=== PATIENT | female | born 1980 | race Caucasian/White ===

== ENCOUNTER → 2016-09-11 | Outpatient (CLI) | payer BC ==
[~2016-09-11] MED LIST: ACHYD1T PO; BPR150TCR PO; FRS325T PO; IBP600T1 PO; OXYC-12 PO; PREN1TAB39 PO
--- NOTE | 2016-09-11 15:35 | Diagnostic Imaging Report ---
INDICATION: survey. TECHNIQUE: Multiple real-time grayscale images were obtained over the gravid uterus. COMPARISON: None FINDINGS: There is a single intrauterine . The heart rate is 132 beats per minute. The placenta is posterior. No placenta previa. The cervix appears long and closed. It is estimated to be around 5.8 cm in length. The internal os is not well delineated, however, on this exam. Adequate amniotic fluid is seen. anatomy evaluation demonstrates no ventriculomegaly and unremarkable appearance of the posterior fossa. The spine, the kidneys, the stomach, the bladder, 2 umbilical arteries and the cord insertion appear unremarkable. The four-chamber view is not well seen due to position. Biometrical measurements are as follows: Biparietal 5.41 cm, age 22 weeks 4 days. Head circumference 20.96 cm, age 23 weeks 1 days. Abdominal circumference 18.08 cm, age 23 weeks 0 days. Femur length 3.91 cm, age 22 weeks 4 days. Sonographic estimate age: 22 weeks 6 days. This compares to gestational age of 22 weeks and 3 days based on provided NICK of 01/12/17. Sonographic estimated date of delivery: 01/09/2017. Estimated Weight: 534 gm (+/- 78 gm). LMP percentile: 62%. heart rate: 132 beats per minute. number: 1 of 1. IMPRESSION: The four-chamber view is not well seen due to position. Followup study within 2 weeks is recommended to reevaluate. Dictated by: Dictated on workstation # [id number]
== END ==
LOC: RAD 10:22
PROVIDERS: ATTEND Obstetrics & Gynecology
DX: Z36 Encounter for antenatal screening of mother (principal); Z3A.22 22 weeks gestation of pregnancy
CPT/HCPCS: 76805

== ENCOUNTER → 2016-11-28 | Outpatient (CLI) | payer BC ==
[~2016-11-28] MED LIST changes: +BUPR300T43 PO; +CITA10TA7 PO; +HYDR-3812 PO; +IBUP-1773 PO; +LORA10TA7 PO; +PREN-8 PO
--- NOTE | 2016-11-28 13:45 | Diagnostic Imaging Report ---
INDICATION: Check growth and amniotic fluid index. TECHNIQUE: Multiple real-time grayscale images were obtained over the gravid uterus. COMPARISON: 09/11/2016. FINDINGS: The previous OB ultrasound exam of 09/11/2016 noted a single live fetus at approximately 22 weeks 6 days gestation +/-2 weeks. The fetus is again identified on this study. The fetus is cephalic in presentation and heart motion was noted with a rate of 135 BPM recorded. On the prior exam, the four-chamber heart view was less than optimal. On this study however, the four-chamber heart view appears to be within normal limits. There are no other abnormalities identified. The placenta is posterior and there is no previa. The amniotic fluid index is 14.5 cm (normal 8 to 22 cm). The growth parameters average 35 weeks 2 days gestation +/-3 weeks. By the first exam, the estimated gestational age should be 33 weeks 4 days. The femur length does fall behind the other measurements by approximately 2 weeks. The weight is in the 80th percentile. Biometrical measurements are as follows: Biparietal 8.77 cm, age 35 weeks 3 days. Head circumference 32.73 cm, age 37 weeks 2 days. Abdominal circumference 31.45 cm, age 35 weeks 3 days. Femur length 6.3 cm, age 32 weeks 5 days. Sonographic estimate age: 35 weeks 2 days. Sonographic estimated date of delivery: 12/31/2016. Estimated Weight: 2525 gm (+/- 369 gm). LMP percentile: 80%. heart rate: 135 beats per minute. number: 1 of 1. IMPRESSION: 1. There is a single live fetus at approximately 33 weeks 4 days gestation +/-1 week. The EDC remains January 12, 2017. 2. There were no abnormalities identified. In particular, the four-chamber heart view is within normal limits. 3. The growth parameters have progressed as expected since the prior exam tending towards the high side of normal. Dictated by: Dictated on workstation # [id number]
== END ==
LOC: RAD 10:35
PROVIDERS: ATTEND Obstetrics & Gynecology
DX: O24.410 Gestational diabetes mellitus in pregnancy, diet controlled (principal); Z3A.33 33 weeks gestation of pregnancy
CPT/HCPCS: 76816

== ENCOUNTER → 2016-12-20 | Outpatient (CLI) | payer BC ==
--- NOTE | 2016-12-20 11:47 | Diagnostic Imaging Report ---
INDICATION: Gestational diabetes. TECHNIQUE: Multiple real-time grayscale images were obtained over the gravid uterus. COMPARISON: 11/28/2016 FINDINGS: heart rate is 153 beats per minute. The presentation is cephalic. The placenta is posterior. No placenta previa. Total biophysical profile score is 8 out of 8. The amniotic fluid index is 12.8 cm. Biometrical measurements are as follows: Biparietal 9.36 cm, age 38 weeks 1 days. Head circumference 33.56 cm, age 38 weeks 3 days. Abdominal circumference 34.80 cm, age 38 weeks 5 days. Femur length 7.12 cm, age 36 weeks 4 days. Sonographic estimate age: 38 weeks 0 days. Sonographic estimated date of delivery: 01-03-2017. Estimated Weight: 3397 gm (+/- 496 gm). LMP percentile: 87%. heart rate: 153 beats per minute. number: 1 of 1. IMPRESSION: Total biophysical profile score is 8 out of 8. Dictated by: Dictated on workstation # [id number]
== END ==
LOC: RAD 10:03
PROVIDERS: ATTEND Obstetrics & Gynecology
DX: O09.523 Supervision of elderly multigravida, third trimester (principal); O24.410 Gestational diabetes mellitus in pregnancy, diet controlled; Z3A.00 Weeks of gestation of pregnancy not specified
CPT/HCPCS: 76805; 76819

== ENCOUNTER 2016-12-26 12:28 | Outpatient (CLI) | payer BC ==
[~2016-12-26] VITALS: Ht 157.5 cm; Wt 82.1 kg
[~2016-12-26 12:28] MED LIST changes: -BUPR300T43 PO; -CITA10TA7 PO; -HYDR-3812 PO; -IBUP-1773 PO; -LORA10TA7 PO; -PREN-8 PO
[2016-12-26] MEDS ORDERED: LORA10TA7 PO (12:36)
[2016-12-26] MEDS ORDERED: CITA10TA7 PO (12:36)
[2016-12-26] MEDS ORDERED: BUPR300T43 PO (12:36)
[2016-12-26] MEDS ORDERED: PREN-8 PO (12:36)
[2016-12-26 12:51] VITALS: BP 113/68
== END 2016-12-26 12:56 | disposition home or self-care (01) ==
LOC: PREOP 12:28
PROVIDERS: ATTEND Obstetrics & Gynecology
DX: Z3A.00 Weeks of gestation of pregnancy not specified; O34.219 Maternal care for unspecified type scar from previous cesarean delivery; Z01.818 Encounter for other preprocedural examination
CPT/HCPCS: 87081

== ENCOUNTER 2017-01-01 03:06 | Inpatient (IN) | payer BC ==
[~2017-01-01] VITALS: Ht 160 cm; Wt 80.9 kg
[~2017-01-01 03:06] MED LIST changes: +BUPR300T43 PO; +CITA10TA7 PO; +CITRIC ACID/SOB CIT (BICITRA) 30 ML UDC ONE; +FAMOTIDINE 20MG/2ML IV (PEPCID) ONE; +LACTATED RINGERS 2,000 ML IV ONE; +LORA10TA7 PO; +METOCLOPRAMIDE INJ 10 MG/2 ML (REGLAN) ONE; +NS (IVPB) 50 ML ONE; +PREN-8 PO; +ceFAZolin 1,000 MG (ANCEF) VIAL ONE; +metroNIDAZOLE 500MG/100ML IVPB 100 ML ONE
[2017-01-01] MEDS ORDERED: CITRIC ACID/SOB CIT (BICITRA) 30 ML UDC PO ONE (06:00)
[2017-01-01] MEDS ORDERED: METOCLOPRAMIDE INJ 10 MG/2 ML (REGLAN) IV ONE (06:00)
[2017-01-01] MEDS ORDERED: FAMOTIDINE 20MG/2ML IV (PEPCID) IV ONE (06:00)
[2017-01-01 06:02] VITALS: BP 108/72
[2017-01-01] MEDS: LACTATED RINGERS 1,000 ML IV PRN ×2 (06:05→07:25)
[2017-01-01 06:23] LABS: BASOPHILS % (AUTO) 0 % (0-10); EOSINOPHILS # (AUTO) 0.1 10^3/uL (0.0-0.3); EOSINOPHILS % (AUTO) 1 % (0-10); LYMPHOCYTES # (AUTO) 2.2 X 10^3 (1.0-4.0); LYMPHOCYTES % (AUTO) 28 % (12-44); MEAN CORPUSCULAR HEMOGLOBIN 31 PG (25-34); MEAN CORPUSCULAR HGB CONC 33 G/DL (32-36); MEAN CORPUSCULAR VOLUME 94 FL (80-99); MONOCYTES # (AUTO) 0.7 X 10^3 (0.0-1.0); MONOCYTES % (AUTO) 9 % (0-12); NEUTROPHILS % (AUTO) 62 % (42-75); PLATELET COUNT 215 10^3/uL (130-400); RED BLOOD COUNT 4.18 10^6/uL (4.35-5.85); RED CELL DISTRIBUTION WIDTH 14.8 % (10.0-14.5)
[2017-01-01 06:53] LABS: BILIRUBIN,URINE NEGATIVE (NEGATIVE); KETONES,URINE NEGATIVE (NEGATIVE); LEUKOCYTE ESTERASE ,URINE NEGATIVE (NEGATIVE); NITRITE,URINE NEGATIVE (NEGATIVE); PH,URINE 7 (5-9); PROTEIN,URINE NEGATIVE (NEGATIVE); UROBILINOGEN,URINE NORMAL (NORMAL)
[2017-01-01] MEDS ORDERED: fentaNYL INJECTION 100 MCG/2 ML AMP ONE (07:06)
[2017-01-01] MEDS ORDERED: morphine PF (DURAMORPH) 10 MG/10 ML AMP ONE (07:06)
[2017-01-01 07:18] LABS: SQUAMOUS EPITHELIAL CELL,UR 0-2 /HPF
[2017-01-01] MEDS ORDERED: LACTATED RINGERS 1,000 ML IV ONE (07:23)
[2017-01-01] MEDS ORDERED: NALOXONE 0.4 MG/ML 1 ML (NARCAN) VIAL IV PRN (07:30)
[2017-01-01] MEDS ORDERED: ONDANSETRON 4 MG/2 ML (SDV) Z0FRAN IV PRN (07:30)
[2017-01-01] MEDS ORDERED: fentaNYL INJECTION 100 MCG/2 ML AMP INJ ONE (07:30)
[2017-01-01] MEDS ORDERED: morphine PF (DURAMORPH) 10 MG/10 ML AMP INJ ONE (07:30)
--- NOTE | 2017-01-01 07:48 | Progress Note-Pre Operative ---
Pre-Operative Progress Note H&P Reviewed The H&P was reviewed, patient examined and no changes noted. Date Seen by Provider: Jan 01, 2017 Time Seen by Provider: 07:35 Date H&P Reviewed: Jan 01, 2017 Time H&P Reviewed: 07:30 Pre-Operative Diagnosis: previous section, gest diabetes, A1, risk reducing salpingectomy SUNNY MEEHAN DO Jan 01, 2017 07:48
[2017-01-01] MEDS ORDERED: ceFAZolin INJECTION 1,000 MG in NS (IVPB) 50 ML IV NR (08:00)
[2017-01-01] MEDS ORDERED: metroNIDAZOLE 500MG/100ML IVPB 100 ML IV NR (08:00)
[2017-01-01] MEDS ORDERED: CATHETER FLUSH 10 ML SYR IV PRN (08:30)
[2017-01-01] MEDS ORDERED: INFLUENZA TRIvalent 2017-2018 0.5 ML/45 MCG SYR IM ONE (08:30)
[2017-01-01] MEDS ORDERED: PHENYLEPHRINE INJ 10 MG/ML (NEO-SYNEPHRINE 1%) ONE (08:47)
[2017-01-01] MEDS ORDERED: OXYTOCIN/NORMAL SALINE 500 ML IV ONE ×2 (08:47→09:08)
[2017-01-01] MEDS ORDERED: OXYTOCIN/NORMAL SALINE 500 ML IV SCH (09:17)
--- NOTE | 2017-01-01 09:27 | Cesarean Section Operative ---
Procedure Procedure Note Pre-operative Diagnosis: Virgen Appiah is a 38 /Para 4 / 2, Gestational Age 39 2/7 weeks, gestational diabetes, A1, previous section, Advanced maternal age, risk reducing salpingectomy Post-operative Diagnosis: same Procedure: Repeat low transverse section, risk reducing salpingectomy Physician: SUNNY MEEHAN Site Foreman: Nida Govea APRN; back office medical assistant necessary to retract important neurovascular structures. Estimated blood loss: 500 mL Disposition: stable Findings: Viable female infant, Apgars 7/9, weight 7#4oz, intact placenta, 3vc, normal appearing uterus, tubes, and ovaries. Indications:Virgen Appiah is a 38 /Para 4 / 2,Gestational Age 39 2/7 weeks, gestational diabetes, A1, previous section, Advanced maternal age, risk reducing salpingectomy Procedure Details: The patient was seen in pre-op and the procedure was discussed with the patient in full, including the risks, benefits, and alternatives. All questions were answered. The patient was taken to the operating room and a time out was performed, verifying patient and procedure. After spinal anesthesia was placed by our anesthesia colleagues, the patient was placed in the dorsal supine with leftward tilt for uterine displacement.~ Her abdomen was then prepped and draped in the typical sterile fashion. A Pfannenstiel skin incision was made using a scalpel and carried down through the underlying fascia. The fascia was incised in the midline and tented up using Angel clamps. On both the inferior and superior fascia side the rectus muscle was dissected off bluntly and sharply using Ruiz scissors. The peritoneum was identified and entered bluntly in the midline. This was then stretched laterally using manual strength. After entering the abdominal cavity and confirming lack of intraperitoneal adhesions, a large Trey retractor was placed and the lower uterine segment was visualized. A scalpel was utilized to make a low transverse uterine incision. Amniotomy was performed with an Allis clamp with return of clear fluid. The 's head was grasped and brought to the level of the incision and delivered with assistance of a silastic suction. The was delivered without difficulty. Mouth and nares were suctioned with bulb suction. After the umbilical cord was clamped and cut, the infant was handed off to the pediatric staff and mother. A sample of cord blood was then obtained. The placenta was delivered intact via uterine massage. The uterus was exteriorized and cleared of all clots and debris. The uterine incision was closed using 0 Vicryl in a running locked fashion. A second imbricated layer was placed using 0 Vicryl in a running fashion as well. The uterus was flexed forward and the posterior rectouterine space was inspected and cleared of all clots and debris. Again the hysterotomy site was examined and hemostasis was observed. The bilateral tubes and ovaries appeared normal. A risk reducing salpingectomy was now done. I elevated the tubes bilaterally with brandi clamps. I then dissected the mesosalpinx with the Ligasure and clamped and cut at the cornu. I then made sure the fibriated ends were completely removed, cauterizing ends at the ovary. There was good hemostasis. Tubes sent for pathology. The uterus was placed back into the abdominal cavity and abdominal gutters were cleared of all clots and debris. A final check of the uterine incision showed it to be hemostatic. The peritoneum was closed using 3-0 Vicryl in a running fashion. The fascia was closed with 0 Vicryl in a running fashion. The subcutaneous space was hemostatic, and irrigated. The subcutaneous space was closed with 3-0 Vicryl in several single interrupted stitches. The skin was then closed using 4-0 Monocryl in a running subcuticular fashion. The skin edges were reapproximated together and were hemostatic. A pressure dressing was applied. All sponge, lap and needle counts were correct at the end of the procedure per nursing. Vitals - Labs Vital Signs - I&O Vital Signs Date Time Temp Pulse Resp B/P (MAP) Pulse Ox O2 Delivery O2 Flow Rate FiO2 01/01/17 06:02 97.3 102 18 108/72 Room Air I & O 01/02/17 07:00 Output Total 560 ml Balance -560 ml Labs Laboratory Tests 01/01/17 05:55: Urine Color YELLOW, Urine Clarity CLEAR, Urine pH 7, Urine Specific Carroll 1.010L, Urine Protein NEGATIVE, Urine Glucose (UA) NEGATIVE, Urine Ketones NEGATIVE, Urine Nitrite NEGATIVE, Urine Bilirubin NEGATIVE, Urine Urobilinogen NORMAL, Urine Leukocyte Esterase NEGATIVE, Urine RBC (Auto) NEGATIVE, Urine RBC NONE, Urine WBC NONE, Urine Squamous Epithelial Cells 0-2, Urine Crystals NONE, Urine Bacteria NEGATIVE, Urine Casts NONE, Urine Mucus SMALLH, Urine Culture Indicated NO 01/01/17 06:05: White Blood Count 8.0, Red Blood Count 4.18L, Hemoglobin 13.0, Hematocrit 39, Mean Corpuscular Volume 94, Mean Corpuscular Hemoglobin 31, Mean Corpuscular Hemoglobin Concent 33, Red Cell Distribution Width 14.8H, Platelet Count 215, Mean Platelet Volume 11.0H, Neutrophils (%) (Auto) 62, Lymphocytes (%) (Auto) 28 , Monocytes (%) (Auto) 9, Eosinophils (%) (Auto) 1, Basophils (%) (Auto) 0, Neutrophils # (Auto) 5.0, Lymphocytes # (Auto) 2.2, Monocytes # (Auto) 0.7, Eosinophils # (Auto) 0.1, Basophils # (Auto) 0.0 SUNNY MEEHAN DO Jan 01, 2017 09:27
[2017-01-01] MEDS ORDERED: MEASLES,MUMPS,RUBELLA 1 EA INJ SC SCH (09:30)
[2017-01-01] MEDS ORDERED: HYDROmorphone (DILAUDID) 2 MG/ML VIAL IVP PRN (09:30)
[2017-01-01] MEDS ORDERED: TETANUS,DIPTH,PERTUSS P/F (BOOSTRIX) 0.5 ML VIAL IM SCH (09:30)
[2017-01-01 10:50] VITALS: BP 106/65
[2017-01-01 12:09] VITALS: BP 105/69
[2017-01-01] MEDS ORDERED: NS IV 1000 ML 0 ML ONE (12:46)
[2017-01-01] MEDS: NS IV 1000 ML 1,000 ML IV SCH ×2 (12:58→21:17)
[2017-01-01] MEDS: KETOROLAC 30 MG/ML VIAL IVP SCH ×2 (14:50→21:17)
[2017-01-01 16:30] VITALS: BP 110/71
[2017-01-01 21:15] VITALS: BP 102/63
[2017-01-01] MEDS: DOCUSATE SODIUM 100 MG (COLACE) CAP PO SCH (21:17)
[2017-01-01] MEDS: HYDROcodone/APAP 5 MG/325 MG (LORTAB) TAB PO PRN (21:17)
[2017-01-02 00:35] VITALS: BP 105/64
[2017-01-02] MEDS: KETOROLAC 30 MG/ML VIAL IVP SCH (04:24)
[2017-01-02 05:00] VITALS: BP 100/65
[2017-01-02 06:27] LABS: BASOPHILS % (AUTO) 0 % (0-10); EOSINOPHILS # (AUTO) 0.1 10^3/uL (0.0-0.3); EOSINOPHILS % (AUTO) 1 % (0-10); LYMPHOCYTES # (AUTO) 1.7 X 10^3 (1.0-4.0); LYMPHOCYTES % (AUTO) 18 % (12-44); MEAN CORPUSCULAR HEMOGLOBIN 32 PG (25-34); MEAN CORPUSCULAR HGB CONC 33 G/DL (32-36); MEAN CORPUSCULAR VOLUME 95 FL (80-99); MEAN PLATELET VOLUME 10.3 FL (7.4-10.4); MONOCYTES # (AUTO) 0.7 X 10^3 (0.0-1.0); MONOCYTES % (AUTO) 8 % (0-12); NEUTROPHILS # (AUTO) 6.8 X 10^3 (1.8-7.8); NEUTROPHILS % (AUTO) 73 % (42-75); PLATELET COUNT 168 10^3/uL (130-400); RED BLOOD COUNT 3.37 10^6/uL (4.35-5.85); RED CELL DISTRIBUTION WIDTH 14.5 % (10.0-14.5); WHITE BLOOD COUNT 9.3 10^3/uL (4.3-11.0)
[2017-01-02 08:30] VITALS: BP 107/65
[2017-01-02] MEDS: IBUPROFEN 600 MG (MOTRIN) TAB PO SCH ×2 (11:03→19:29)
[2017-01-02] MEDS: FERROUS SULF 325 MG (IRON) TAB PO SCH (11:03)
[2017-01-02] MEDS: DOCUSATE SODIUM 100 MG (COLACE) CAP PO SCH ×2 (11:03→20:40)
--- NOTE | 2017-01-02 11:24 | Anesthesia-Regional Post-Op ---
Regional Patient Condition Mental Status: Alert, Oriented x3 Circulation: Same as Pre-Op Headache: Absent Sensation: Full Recovery Motor Block: Absent Post Op Complications Complications None Follow Up Care/Instructions Patient Instructions None needed. Anesthesia/Patient Condition Patient is doing well, no complaints, stable vital signs, no apparent adverse anesthesia problems. No complications reported per nursing. JESUSITA LOVE CRNA Jan 02, 2017 11:24
--- NOTE | 2017-01-02 14:06 | Postpartum Progress Note ---
Post Op Post-operative Day #1s/p RLTCS Subjective: Patient is without complaints. Ambulating, voiding after ramos removed. Tolerating a regular diet without nausea or vomiting. Normal lochia. Pain is well controlled with oral pain medications. Passing flatus. breast feeding. Objective: Laboratory Tests Test 01/02/17 06:15 Range/Units White Blood Count 9.3 4.3-11.0 10^3/uL Red Blood Count 3.37 L 4.35-5.85 10^6/uL Hemoglobin 10.6 L 11.5-16.0 G/DL Hematocrit 32 L 35-52 % Mean Corpuscular Volume 95 80-99 FL Mean Corpuscular Hemoglobin 32 25-34 PG Mean Corpuscular Hemoglobin Concent 33 32-36 G/DL Red Cell Distribution Width 14.5 10.0-14.5 % Platelet Count 168 130-400 10^3/uL Mean Platelet Volume 10.3 7.4-10.4 FL Neutrophils (%) (Auto) 73 42-75 % Lymphocytes (%) (Auto) 18 12-44 % Monocytes (%) (Auto) 8 0-12 % Eosinophils (%) (Auto) 1 0-10 % Basophils (%) (Auto) 0 0-10 % Neutrophils # (Auto) 6.8 1.8-7.8 X 10^3 Lymphocytes # (Auto) 1.7 1.0-4.0 X 10^3 Monocytes # (Auto) 0.7 0.0-1.0 X 10^3 Eosinophils # (Auto) 0.1 0.0-0.3 10^3/uL Basophils # (Auto) 0.0 0.0-0.1 10^3/uL Vital Sign - Last 12Hours 01/02/17 01/02/17 05:00 08:30 Temp 98.8 98.1 Pulse 79 84 Resp 18 18 B/P (MAP) 100/65 107/65 Pulse Ox 97 97 O2 Delivery Room Air Room Air Intake and Output 01/03/17 00:00 Intake Total 2100 ml Output Total 1425 ml Balance 675 ml Intake Oral 1100 ml IV Total 1000 ml Output Urine Total 1425 ml Physical Exam: General - Alert and oriented, no apparent distress Abdomen - Soft, appropriately tender to palpation, non-distended, fundus firm at umbilicus Incision - clean, dry and intact; no erythema or induration, no drainage Extremities - no edema, negative Yuki's bilaterally ASSESSMENT: 1. post-operative day # 1, status post LTCS, risk reducing salpingectomy. Recovering well, hemodynamically stable 2.. Gestational diabetes, A1 Plan: Routine post-operative care. Encourage breast feeding. Encourage ambulation. VTE prophylaxis: SCDs. Ferrous sulfate supplementation. Plan for discharge tomorrow Vitals - Labs Vital Signs - I&O Vital Signs Date Time Temp Pulse Resp B/P (MAP) Pulse Ox O2 Delivery O2 Flow Rate FiO2 01/02/17 08:30 98.1 84 18 107/65 97 Room Air 01/02/17 05:00 98.8 79 18 100/65 97 Room Air 01/02/17 00:35 97.0 86 18 105/64 97 Room Air 01/01/17 21:15 98.3 91 18 102/63 97 Room Air 01/01/17 16:30 97.5 83 18 110/71 99 Room Air 01/01/17 16:20 Room Air Labs Laboratory Tests 01/02/17 06:15: White Blood Count 9.3, Red Blood Count 3.37L, Hemoglobin 10.6L, Hematocrit 32L, Mean Corpuscular Volume 95, Mean Corpuscular Hemoglobin 32, Mean Corpuscular Hemoglobin Concent 33, Red Cell Distribution Width 14.5, Platelet Count 168, Mean Platelet Volume 10.3, Neutrophils (%) (Auto) 73, Lymphocytes (%) (Auto) 18 , Monocytes (%) (Auto) 8, Eosinophils (%) (Auto) 1, Basophils (%) (Auto) 0, Neutrophils # (Auto) 6.8, Lymphocytes # (Auto) 1.7, Monocytes # (Auto) 0.7, Eosinophils # (Auto) 0.1, Basophils # (Auto) 0.0 SUNNY MEEHAN DO Jan 02, 2017 14:06
[2017-01-02 15:05] VITALS: BP 99/67
[2017-01-02] MEDS: HYDROcodone/APAP 5 MG/325 MG (LORTAB) TAB PO PRN (19:30)
[2017-01-02 20:40] VITALS: BP 137/81
[2017-01-03] MEDS: HYDROcodone/APAP 5 MG/325 MG (LORTAB) TAB PO PRN ×2 (00:08→07:05)
[2017-01-03] MEDS: IBUPROFEN 600 MG (MOTRIN) TAB PO SCH ×2 (01:23→08:08)
[2017-01-03] MEDS: DOCUSATE SODIUM 100 MG (COLACE) CAP PO SCH (08:08)
[2017-01-03] MEDS: FERROUS SULF 325 MG (IRON) TAB PO SCH (08:08)
[2017-01-03 08:15] VITALS: BP 110/66
--- NOTE | 2017-01-03 08:26 | Postpartum Progress Note ---
Post Op Post-operative Day #2 s/p RLTCS Subjective: Patient is without complaints. Ambulating, voiding after ramos removed. Tolerating a regular diet without nausea or vomiting. Normal lochia. Pain is well controlled with oral pain medications. Passing flatus. breast feeding Objective: Vital Sign - Last 12Hours 01/02/17 20:40 Temp 98.3 Pulse 90 Resp 20 B/P (MAP) 137/81 Pulse Ox 97 O2 Delivery Room Air Physical Exam: General - Alert and oriented, no apparent distress Abdomen - Soft, appropriately tender to palpation, non-distended, fundus firm at umbilicus Incision - clean, dry and intact; no erythema or induration, no drainage Extremities - no edema, negative Yuki's bilaterally Assessment: 1. post-operative day # 2, status post RLTCS Recovering well, hemodynamically stable Plan: Routine post-operative care. Encourage breast feeding. Encourage ambulation. VTE prophylaxis: SCDs. DC today Vitals - Labs Vital Signs - I&O Vital Signs Date Time Temp Pulse Resp B/P (MAP) Pulse Ox O2 Delivery O2 Flow Rate FiO2 01/02/17 20:40 98.3 90 20 137/81 97 Room Air 01/02/17 15:05 98.9 96 20 99/67 96 Room Air 01/02/17 08:30 98.1 84 18 107/65 97 Room Air SUNNY MEEHAN DO Jan 03, 2017 08:26
[2017-01-03] MEDS ORDERED: HYDR-3812 PO (08:29)
[2017-01-03] MEDS ORDERED: IBUP-1773 PO (08:29)
--- NOTE | 2017-01-03 08:32 | Discharge Inst-Women's Service ---
Discharge Inst-Women's Serv Depart Medication/Instructions New, Converted or Re-Newed RX: RX on Chart Final Diagnosis previous section advanced maternal age gestational diabetes A1 risk reducing salpingectomy Consults/Follow Up Additional Follow Up: Yes (1 week for incision check, 6 weeks pp exam) Activity Activity: Activity as Tolerated Driving Instructions: No Driving for 1 Week NO SMOKING: NO SMOKING Nothing Inside Vagina: No Douching, No [place], No Tampons Diet Discharge Diet: No Restrictions Symptoms to Report to : Swelling Increased, Bleeding Excessive, Pain Increased, Fever Over 101 Degrees F, Vaginal Bleeding Increase, Cramps in Feet or Legs, Vaginal Discharge Foul For Any Problems or Questions: Contact Your Physician Skin/Wound Care Infection Signs and Symptoms: Increased Redness, Foul Odor of Wound, Increased Drainage, Skin Itchy or Has a Rash, Increased Swelling, Temperature Above 101 F Operative Area Clean and Dry: Keep Incision Clean/Dry Stitches/Arun/Dermabond: Dermabond Bathing Instructions: SUNNY Zaman DO Jan 03, 2017 08:32
[2017-01-03] MEDS ORDERED: INFLUENZA TRIvalent 2017-2018 0.5 ML/45 MCG SYR IM ONE (09:30)
--- NOTE | 2017-01-17 12:41 | Physician Query-Final Dx ---
KATE BAILEY 01/17/17 1241: Final Diagnosis Give Final Diagnosis Please give Final Diagnosis SUNNY MEEHAN DO 01/17/17 1325: Final Diagnosis Give Final Diagnosis previous section advanced maternal age gestational diabetes A1 risk reducing salpingectomy KATE BAILEY Jan 17, 2017 12:41 SUNNY MEEHAN DO Jan 17, 2017 13:25
== END 2017-01-03 10:30 | disposition home or self-care (01) | DRG 766 ==
LOC: LDRP 05:51
PROVIDERS: ADMIT Obstetrics & Gynecology; ATTEND Obstetrics & Gynecology
PROC: 0UT70ZZ Resection of Bilateral Fallopian Tubes, Open Approach (ICD-10-PCS; 2017-01-01)
PROC: 10D00Z1 Extraction of Products of Conception, Low, Open Approach (ICD-10-PCS; principal; 2017-01-01 08:05)
DX: O34.211 Maternal care for low transverse scar from previous cesarean delivery (principal); O24.410 Gestational diabetes mellitus in pregnancy, diet controlled; O99.343 Other mental disorders complicating pregnancy, third trimester; F41.9 Anxiety disorder, unspecified; Z3A.39 39 weeks gestation of pregnancy; Z37.0 Single live birth; Z23 Encounter for immunization
CPT/HCPCS: 36415; 81000; 85025; 86850; 86900; 86901; 88302; 90715; 94664

== ENCOUNTER 2022-08-13 14:09 | Outpatient (CLI) | payer OTHER, BC ==
[~2022-08-13 14:09] MED LIST changes: +ACHD5005 PO; -CITA10TA7 PO; +CITA10TA9 PO; -CITRIC ACID/SOB CIT (BICITRA) 30 ML UDC ONE; -FAMOTIDINE 20MG/2ML IV (PEPCID) ONE; +IBUP-1773 PO; -LACTATED RINGERS 2,000 ML IV ONE; -METOCLOPRAMIDE INJ 10 MG/2 ML (REGLAN) ONE; -NS (IVPB) 50 ML ONE; -ceFAZolin 1,000 MG (ANCEF) VIAL ONE; -metroNIDAZOLE 500MG/100ML IVPB 100 ML ONE
== END 2022-08-13 14:30 ==
LOC: SLEEP 14:09
PROVIDERS: ATTEND Nurse Practitioner
DX: G47.33 Obstructive sleep apnea (adult) (pediatric) (principal); G47.10 Hypersomnia, unspecified; J30.9 Allergic rhinitis, unspecified; R09.82 Postnasal drip
CPT/HCPCS: G0399